=== PATIENT | male | born 1975 | race American Indian/Alaskan Native ===

== ENCOUNTER 2019-01-01 21:04 | Emergency (ER) | payer SELFPAY ==
--- NOTE | 2019-01-01 23:06 | ER ---
Nurse's Notes [facility] Name: Cortes Marsh Age: 43 yrs Sex: Male : 1975 Arrival Date: 01/01/2019 Time: 21:15 Bed 10 Private MD: Diagnosis: Periapical abscess without sinus Presentation: 01/01 21:38 Presenting complaint: Patient states: right ear and right jaw pain X3 days [employer]. pt took ak1 his girlfriend Vamsi this morning and pain decreased. Transition of care: patient was not received from another setting of care. Onset of symptoms is unknown. Risk Assessment: Do you want to hurt yourself or someone else? Patient reports no desire to harm self or others. Initial Sepsis Screen: Does the patient meet any 2 criteria? No. Patient's initial sepsis screen is negative. Does the patient have a suspected source of infection? No. Patient's initial sepsis screen is negative. Care prior to arrival: None. 21:38 Method Of Arrival: Ambulatory ak1 21:38 Acuity: [place] 4 ak1 Triage Assessment: 21:40 General: Appears in no apparent distress. Behavior is calm, cooperative. ak1 Historical: - Allergies: 21:40 No Known Allergies; ak1 - Home Meds: 21:40 None [Active]; ak1 - PMHx: 21:40 None; ak1 - PSHx: 21:40 None; ak1 - Immunization history:: Adult Immunizations unknown. - Social history:: Smoking status: Patient/guardian denies using tobacco. - Ebola Screening: : No symptoms or risks identified at this time. Screenin:22 Abuse screen: Denies threats or abuse. Nutritional screening: No deficits noted. bb Tuberculosis screening: No symptoms or risk factors identified. Fall Risk None identified. Assessment: 23:21 Reassessment: pt not seen by this RN and discharged by EDP. bb 23:23 Reassessment: pt is A\T\O x 4, resp unlabored, verbalized understanding of and agrees to bb plan of care discharge instructions given pt ambulated with steady gait to exit. Vital Signs: 21:40 BP 121 / 66; Pulse 64; Resp 18; Temp 98.2; Pulse Ox 99% on R/A; Weight 79.38 kg (R); ak1 Height 5 ft. 10 in. (177.80 cm) (R); Pain 5/10; 21:40 Body Mass Index 25.11 (79.38 kg, 177.80 cm) ak1 ED Course: 21:15 Patient arrived in ED. ag3 21:40 Triage completed. ak1 21:40 Arm band placed on Patient placed in waiting room, Patient notified of wait time. ak1 22:11 [facility]C [facility] kb 22:11 Mauricio Diehl MD is Attending Physician. kb 23:21 No provider procedures requiring assistance completed. Patient did not have IV access bb during this emergency room visit. Administered Medications: No medications were administered Outcome: 23:06 Discharge ordered by . kb 23:22 Discharged to home ambulatory. bb 23:22 Condition: stable 23:22 Discharge instructions given to patient, Instructed on discharge instructions, follow up and referral plans. medication usage, Demonstrated understanding of instructions, follow-up care, medications, Prescriptions given X 1. 23:24 Patient left the ED. bb Signatures: Noemi Fernandes FNP-C FNP-Ckb Ballard, Brenda, RN RN bb Renetta Torres RN RN ak1 Carie Schmitz ag3
--- NOTE | 2019-01-01 23:06 | EDPHYS ---
Physician Documentation [facility] Name: Cortes Marsh Age: 43 yrs Sex: Male : 1975 Arrival Date: 01/01/2019 Time: 21:15 Bed 10 Private MD: ED Physician Mauricio Diehl HPI: 01/02 00:46 This 43 yrs old Male presents to ER via Ambulatory with complaints of kb Ear Pain, Jaw Pain. 00:47 The patient presents with pain, redness. kb 00:47 The problem is located in the lower right third molar (#32) and lower right second kb molar (#31) and lower right first molar (#30) and lower right second bicuspid (#29). Onset: The symptoms/episode began/occurred 3 day(s) ago. Duration: The symptoms are continuous. Modifying factors: The symptoms are alleviated by nothing, the symptoms are aggravated by nothing. Associated signs and symptoms: Pertinent positives: pain, redness in area, swelling. Severity of symptoms: At their worst the symptoms were moderate, in the emergency department the symptoms are unchanged. The patient has not experienced similar symptoms in the past. The patient has not recently seen a physician. Historical: - Allergies: 01/01 21:40 No Known Allergies; ak1 - Home Meds: 21:40 None [Active]; ak1 - PMHx: 21:40 None; ak1 - PSHx: 21:40 None; ak1 - Immunization history:: Adult Immunizations unknown. - Social history:: Smoking status: Patient/guardian denies using tobacco. - Ebola Screening: : No symptoms or risks identified at this time. ROS: 01/02 00:46 Constitutional: Negative for fever, chills, and weight loss, Neck: Negative for injury, kb pain, and swelling, Cardiovascular: Negative for chest pain, palpitations, and edema, Respiratory: Negative for shortness of breath, cough, wheezing, and pleuritic chest pain, Abdomen/GI: Negative for abdominal pain, nausea, vomiting, diarrhea, and constipation, Back: Negative for injury and pain, MS/Extremity: Negative for injury and deformity, Skin: Negative for injury, rash, and discoloration, Neuro: Negative for headache, weakness, numbness, tingling, and seizure. ENT: Positive for dental pain. Exam: 00:46 Constitutional: This is a well developed, well nourished patient who is awake, alert, kb and in no acute distress. Head/Face: Normocephalic, atraumatic. Chest/axilla: Normal chest wall appearance and motion. Nontender with no deformity. No lesions are appreciated. Cardiovascular: Regular rate and rhythm with a normal S1 and S2. No gallops, murmurs, or rubs. Normal PMI, no JVD. No pulse deficits. Respiratory: Lungs have equal breath sounds bilaterally, clear to auscultation and percussion. No rales, rhonchi or wheezes noted. No increased work of breathing, no retractions or nasal flaring. Abdomen/GI: Soft, non-tender, with normal bowel sounds. No distension or tympany. No guarding or rebound. No evidence of tenderness throughout. Skin: Warm, dry with normal turgor. Normal color with no rashes, no lesions, and no evidence of cellulitis. MS/ Extremity: Pulses equal, no cyanosis. Neurovascular intact. Full, normal range of motion. Neuro: Awake and alert, GCS 15, oriented to person, place, time, and situation. Cranial nerves II-XII grossly intact. Motor strength 5/5 in all extremities. Sensory grossly intact. Cerebellar exam normal. Normal gait. 00:46 ENT: Dental exam: pain, that is moderate, specifically in the lower right second bicuspid (#29), lower right first molar (#30), lower right second molar (#31) and lower right third molar (#32). Vital Signs: 01/01 21:40 BP 121 / 66; Pulse 64; Resp 18; Temp 98.2; Pulse Ox 99% on R/A; Weight 79.38 kg (R); ak1 Height 5 ft. 10 in. (177.80 cm) (R); Pain 5/10; 21:40 Body Mass Index 25.11 (79.38 kg, 177.80 cm) ak1 MDM: 22:49 Patient medically screened. kb 01/02 00:46 Data reviewed: vital signs, nurses notes. Data interpreted: Pulse oximetry: on room air kb is 99 %. Interpretation: normal. Counseling: I had a detailed discussion with the patient and/or guardian regarding: the historical points, exam findings, and any diagnostic results supporting the discharge/admit diagnosis, the need for outpatient follow up, a dentist, to return to the emergency department if symptoms worsen or persist or if there are any questions or concerns that arise at home. Administered Medications: No medications were administered Disposition: 07:10 Co-signature as Attending Physician, Mauricio Diehl MD Available for consultation at ps1 all times. . Disposition: 01/01/19 23:06 Discharged to Home. Impression: Periapical abscess without sinus. - Condition is Stable. - Discharge Instructions: Dental Pain, [id number], Dental Abscess, [id number]. - Prescriptions for Augmentin 875- 125 mg Oral Tablet - take 1 tablet by ORAL route every 12 hours for 7 days; 14 tablet. - Medication Reconciliation Form, Thank You Letter, Antibiotic Education, Prescription Opioid Use form. - Follow up: Emergency Department; When: As needed; Reason: Worsening of condition. Follow up: Private Physician; When: 2 - 3 days; Reason: Recheck today's complaints, Continuance of care, Re-evaluation by your physician. Signatures: Noemi Fernandes FNP-C FNP-Pham Lopez, RN RN bb Renetta Torres RN RN ak1 Mauricio Diehl MD MD ps1 Corrections: (The following items were deleted from the chart) 01/01 23:24 23:06 01/01/2019 23:06 Discharged to Home. Impression: Periapical abscess without bb sinus. Condition is Stable. Forms are Medication Reconciliation Form, Thank You Letter, Antibiotic Education, Prescription Opioid Use. Follow up: Emergency Department; When: As needed; Reason: Worsening of condition. Follow up: Private Physician; When: 2 - 3 days; Reason: Recheck today's complaints, Continuance of care, Re-evaluation by your physician. kb
== END 2019-01-01 23:24 | disposition home or self-care (01) ==
LOC: ER 21:04
DX: K04.7 Periapical abscess without sinus (principal)
CPT/HCPCS: 99282

== ENCOUNTER 2019-12-30 19:04 | Emergency (ER) | payer SELFPAY ==
[2019-12-30] MEDS ORDERED: NA CHLORIDE 0.9% 1,000 ML ONE (20:24)
[2019-12-30 20:30] LABS: Absolute Lymphocytes (CBC) 1.1 K/uL (0.7-4.9); Basophils % 0.3 % (0-1.3); Hematocrit 42.8 % (39.6-49.0); Lymphocytes % 15.4 % (15.3-44.8); MPV 9.4 fL (7.6-11.3)
[2019-12-30 20:48] LABS: Bilirubin Direct 0.1 mg/dL (0-0.2); Bilirubin Total 0.5 mg/dL (0.2-1.0); Potassium 3.8 mmol/L (3.5-5.1); Protein, Total 7.4 g/dL (6.4-8.2)
--- NOTE | 2019-12-30 22:18 | ER ---
Nurse's Notes [facility] Name: Cortes Marsh Age: 44 yrs Sex: Male : 1975 Arrival Date: 12/30/2019 Time: 19:07 Bed 26 Private MD: Diagnosis: Weakness Presentation: 12/29 19:15 Chief complaint: Patient states: Fatigue, sweating, nausea "scatterbrained", and ss generally feeling ill that began today. Denies fever, cough and/or SOB. Coronavirus screen: Client denies travel out of the [place] in the last 14 days. nausea. Ebola Screen: Patient denies exposure to infectious person. Patient denies travel to an Ebola-affected area in the 21 days before illness onset. Initial Sepsis Screen: Does the patient meet any 2 criteria? No. Patient's initial sepsis screen is negative. Does the patient have a suspected source of infection? No. Patient's initial sepsis screen is negative. Risk Assessment: Do you want to hurt yourself or someone else? Patient reports no desire to harm self or others. Note Pt states, "i have anxiety and I had a panic attack two weeks ago. It kind of feels the same, but different like maybe kidney problems.". Onset of symptoms was December 30, 2019. 19:15 Method Of Arrival: Ambulatory ss 19:15 Acuity: [place] 3 ss Historical: - Allergies: 19:18 No Known Allergies; ss - Home Meds: 19:19 None [Active]; ss - PMHx: 19:19 Anxiety; ss - PSHx: 19:19 None; ss - Immunization history:: Adult Immunizations not immunized. - Social history:: Smoking status: Patient denies any tobacco usage or history of. Screenin:17 Abuse screen: Denies threats or abuse. Denies injuries from another. Nutritional rr5 screening: No deficits noted. Tuberculosis screening: No symptoms or risk factors identified. Fall Risk IV access (20 points). Total [place] Fall Scale indicates No Risk (0-24 pts). Assessment: 19:20 General: Appears in no apparent distress. uncomfortable, Behavior is calm, cooperative, rr5 appropriate for age, Reports feeling ill for. Pain: Denies pain. Neuro: Level of Consciousness is awake, alert, obeys commands, Oriented to person, place, time, situation. Cardiovascular: Capillary refill < 3 seconds Patient's skin is warm and dry. Respiratory: Airway is patent Respiratory effort is even, unlabored, Respiratory pattern is regular, symmetrical. 19:20 GI: No signs and/or symptoms were reported involving the gastrointestinal system. : rr5 No signs and/or symptoms were reported regarding the genitourinary system. EENT: No signs and/or symptoms were reported regarding the EENT system. Derm: Skin is intact, is healthy with good turgor, Skin temperature is warm. Musculoskeletal: Circulation, motion, and sensation intact. Capillary refill < 3 seconds. 20:30 Reassessment: Patient appears in no apparent distress at this time. Patient and/or rr5 family updated on plan of care and expected duration. Pain level reassessed. Patient is alert, oriented x 3, equal unlabored respirations, skin warm/dry/pink. 21:17 Reassessment: Patient appears in no apparent distress at this time. Patient is alert, rr5 oriented x 3, equal unlabored respirations, skin warm/dry/pink. no complaints made. 22:35 Reassessment: Patient appears in no apparent distress at this time. Patient is alert, rr5 oriented x 3, equal unlabored respirations, skin warm/dry/pink. discharge instruction given and explained without complaints made. Patient states symptoms have improved. Vital Signs: 19:18 BP 119 / 80; Pulse 90; Resp 18; Temp 98.9(O); Pulse Ox 99% on R/A; Weight 81.65 kg; Height 5 ft. 10 in. (177.80 cm); Pain 0/10; 20:20 BP 115 / 70; Pulse 85; Resp 17; Pulse Ox 98% ; rr5 21:17 BP 109 / 85; Pulse 75; Resp 16; Pulse Ox 99% ; rr5 22:30 BP 123 / 84; Pulse 68; Resp 18; Temp 98.6(O); Pulse Ox 95% on R/A; oe 19:18 Body Mass Index 25.83 (81.65 kg, 177.80 cm) ED Course: 19:07 Patient arrived in ED. bp1 19:18 Triage completed. ss 19:18 Arm band placed on right wrist. ss 19:31 Aric Silva RN is Primary Nurse. rr5 19:35 Rj Iyer MD is Attending Physician. tw4 20:15 Inserted saline lock: 20 gauge in right forearm, using aseptic technique. Blood oe collected. 20:17 Patient has correct armband on for positive identification. Bed in low position. Call rr5 light in reach. Pulse ox on. NIBP on. 21:56 No provider procedures requiring assistance completed. EKG done, by ED staff, reviewed rr5 by Rj Iyer MD. 22:36 IV discontinued, intact, bleeding controlled, No redness/swelling at site. Pressure rr5 dressing applied. Administered Medications: 20:00 Drug: NS 0.9% 1000 ml Route: IV; Rate: 1 bolus; Site: right antecubital; rr5 22:00 Follow up: Response: No adverse reaction; IV Status: Completed infusion; IV Intake: rr5 1000ml Intake: 22:00 IV: 1000ml; Total: 1000ml. rr5 Outcome: 22:16 Discharge ordered by . tw4 22:36 Discharged to home ambulatory. rr5 22:36 Condition: stable 22:36 Discharge instructions given to patient, Instructed on discharge instructions, follow up and referral plans. Demonstrated understanding of instructions, follow-up care. 22:37 Patient left the ED. rr5 Signatures: Monica Echevarria, RN RN ss Herman Lawton Rj Iyer MD MD tw4 Aric Silva, RN RN rr5 Zoe Mcguire bp1
--- NOTE | 2019-12-30 22:18 | EDPHYS ---
Physician Documentation [facility] Name: Cortes Marsh Age: 44 yrs Sex: Male : 1975 Arrival Date: 12/30/2019 Time: 19:07 Bed 26 Private MD: ED Physician Rj Iyer HPI: 12/30 01:28 This 44 yrs old Male presents to ER via Ambulatory with complaints of tw4 Scatterbrain, Sweaty, Doesn't Feel Right, Fatigue. 01:28 The patient presents with dizziness. The patient presents with generalized weakness. tw4 Onset: The symptoms/episode began/occurred yesterday. Context: occurred at home. Modifying factors: The symptoms are alleviated by nothing, the symptoms are aggravated by nothing. Associated signs and symptoms: The patient has no apparent associated signs or symptoms. Severity of symptoms: At their worst the symptoms were moderate in the emergency department the symptoms are unchanged. Patient's baseline: Neuro: alert and fully oriented, Motor: no deficits, Ambulation: walks without assistance. The patient has not experienced similar symptoms in the past. Historical: - Allergies: 12/29 19:18 No Known Allergies; ss - Home Meds: 19:19 None [Active]; ss - PMHx: 19:19 Anxiety; ss - PSHx: 19:19 None; ss - Immunization history:: Adult Immunizations not immunized. - Social history:: Smoking status: Patient denies any tobacco usage or history of. ROS: 12/30 01:28 Constitutional: Negative for fever, chills, and weight loss, Eyes: Negative for injury, tw4 pain, redness, and discharge, Respiratory: Negative for shortness of breath, cough, wheezing, and pleuritic chest pain, Abdomen/GI: Negative for abdominal pain, nausea, vomiting, diarrhea, and constipation, Back: Negative for injury and pain, MS/Extremity: Negative for injury and deformity, Skin: Negative for injury, rash, and discoloration, Neuro: Negative for headache, weakness, numbness, tingling, and seizure. Exam: 01:28 Constitutional: This is a well developed, well nourished patient who is awake, alert, tw4 and in no acute distress. Head/Face: Normocephalic, atraumatic. Cardiovascular: Regular rate and rhythm with a normal S1 and S2. No gallops, murmurs, or rubs. Normal PMI, no JVD. No pulse deficits. Respiratory: Lungs have equal breath sounds bilaterally, clear to auscultation and percussion. No rales, rhonchi or wheezes noted. No increased work of breathing, no retractions or nasal flaring. Abdomen/GI: Soft, non-tender, with normal bowel sounds. No distension or tympany. No guarding or rebound. No evidence of tenderness throughout. Skin: Warm, dry with normal turgor. Normal color with no rashes, no lesions, and no evidence of cellulitis. MS/ Extremity: Pulses equal, no cyanosis. Neurovascular intact. Full, normal range of motion. Neuro: Awake and alert, GCS 15, oriented to person, place, time, and situation. Cranial nerves II-XII grossly intact. Motor strength 5/5 in all extremities. Sensory grossly intact. Cerebellar exam normal. Normal gait. Vital Signs: 12/29 19:18 BP 119 / 80; Pulse 90; Resp 18; Temp 98.9(O); Pulse Ox 99% on R/A; Weight 81.65 kg; ss Height 5 ft. 10 in. (177.80 cm); Pain 0/10; 20:20 BP 115 / 70; Pulse 85; Resp 17; Pulse Ox 98% ; rr5 21:17 BP 109 / 85; Pulse 75; Resp 16; Pulse Ox 99% ; rr5 22:30 BP 123 / 84; Pulse 68; Resp 18; Temp 98.6(O); Pulse Ox 95% on R/A; oe 19:18 Body Mass Index 25.83 (81.65 kg, 177.80 cm) MDM: 19:36 Patient medically screened. tw4 12/30 01:28 Differential diagnosis: cardiac arrhythmia, CVA. Data reviewed: vital signs, nurses tw4 notes. Data reviewed: lab test result(s), CBC, electrolytes, hepatic panel. Test interpretation: by ED physician or midlevel provider: plain radiologic studies. Counseling: I had a detailed discussion with the patient and/or guardian regarding: the historical points, exam findings, and any diagnostic results supporting the discharge/admit diagnosis. Special discussion: I discussed with the patient/guardian in detail that at this point there is no indication for admission to the hospital. It is understood, however, that if the symptoms persist or worsen the patient needs to return immediately for re-evaluation. 12/29 19:35 Order name: Basic Metabolic Panel; Complete Time: 21:29 4 12/29 21:29 Interpretation: Normal except: CL 109; GLUC 125; GFR 75. 12/29 19:35 Order name: CBC with Diff; Complete Time: 21:29 4 12/29 21:29 Interpretation: Normal except: NISHANT% 77.9. 12/29 19:35 Order name: Hepatic Function; Complete Time: 21:29 tw4 12/29 21:31 Interpretation: Within normal limits. 12/29 19:35 Order name: Lipase; Complete Time: 21:29 4 12/29 21:30 Interpretation: Normal except: LIP 55. 12/29 19:35 Order name: IV Saline Lock; Complete Time: 20:17 tw4 12/29 19:35 Order name: Labs collected and sent; Complete Time: 20:17 [facility] 12/29 21:53 Order name: EKG - Nurse/Tech; Complete Time: 21:53 rr5 EC:18 Rate is 56 beats/min. Rhythm is regular. QRS [place] is Normal. NC interval is normal. QRS tw4 interval is normal. QT interval is normal. No Q waves. T waves are Normal. No ST changes noted. Clinical impression: Sinus bradycardia. Reviewed by me. Administered Medications: 12/29 20:00 Drug: NS 0.9% 1000 ml Route: IV; Rate: 1 bolus; Site: right antecubital; rr5 22:00 Follow up: Response: No adverse reaction; IV Status: Completed infusion; IV Intake: rr5 1000ml Disposition: 12/30/19 22:16 Discharged to Home. Impression: Weakness. - Condition is Stable. - Discharge Instructions: Weakness, Fatigue. - Medication Reconciliation Form, Thank You Letter, Antibiotic Education, Prescription Opioid Use form. - Follow up: Private Physician; When: Upon discharge from the Emergency Department; Reason: Recheck today's complaints, Continuance of care, Re-evaluation by your physician. - Problem is new. - Symptoms have improved. Signatures: Dispatcher [employer] EDMA Monica Echevarria RN RN Rj Iyer MD MD tw4 Silva, Aric, RN RN rr5 Corrections: (The following items were deleted from the chart) 22:36 22:16 12/30/2019 22:16 Discharged to Home. Impression: Weakness. Condition is Stable. rr5 Forms are Medication Reconciliation Form, Thank You Letter, Antibiotic Education, Prescription Opioid Use. Follow up: Private Physician; When: Upon discharge from the Emergency Department; Reason: Recheck today's complaints, Continuance of care, Re-evaluation by your physician. Problem is new. Symptoms have improved. tw4
[2019-12-30 22:48] VITALS: BP 123/84; TEMP 98.6; O2SAT 95
--- NOTE | 2020-01-01 11:05 | EKG ---
Test Date: 2019-12-30 Test Time: 21:49:11 Accounts Specialist: RR MEASUREMENT RESULTS: Intervals: Rate: 56 NV: 164 QRSD: 96 QT: 426 QTc: 411 [place]: P: 30 NV: 164 QRS: 74 T: 35 INTERPRETIVE STATEMENTS: Sinus bradycardia Otherwise normal ECG No previous ECG available for comparison Electronically Signed On 01-01-20 11:03:04 CDT by Bridger Marion
== END 2019-12-30 22:37 | disposition home or self-care (01) ==
LOC: ER 19:04
DX: R53.1 Weakness (principal)
CPT/HCPCS: 36415; 80048; 80076; 83690; 85025; 93005; 96360; 96361; 99284; J7030

== ENCOUNTER 2020-10-17 22:43 | Emergency (ER) | payer SELFPAY ==
[2020-10-18 00:25] LABS: Absolute Lymphocytes (CBC) 1.2 K/uL (0.7-4.9); Basophils % 0.6 % (0-1.3); Hematocrit 43.2 % (39.6-49.0); Lymphocytes % 15.5 % (15.3-44.8); MPV 9.1 fL (7.6-11.3); RBC Red Blood Cell Count 4.45 M/uL (4.33-5.43)
[2020-10-18 00:42] LABS: ALT/SGPT 74 U/L (12-78); AST/SGOT 34 U/L (15-37); Albumin 3.9 g/dL (3.4-5.0); Alkaline Phosphatase 72 U/L (45-117); BUN Blood Urea Nitrogen 21 mg/dL (7-18); Bicarbonate 27 mmol/L (21-32); Bilirubin Direct < 0.1 mg/dL (0-0.2); Bilirubin Total 0.2 mg/dL (0.2-1.0); Glucose Level 95 mg/dL (74-106); Lipase 65 U/L (73-393); Protein, Total 7.4 g/dL (6.4-8.2); Sodium Level 142 mmol/L (136-145)
[2020-10-18 01:36] LABS: Urine Blood Negative (Negative); Urine Glucose Negative (Negative); Urine Protein Negative (Negative)
[2020-10-18 01:58] LABS: Barbiturates NEGATIVE (NEGATIVE); Benzodiazepines NEGATIVE (NEGATIVE); Cocaine NEGATIVE (NEGATIVE); METHAMPHETAM NEGATIVE (NEGATIVE); Methadone NEGATIVE (NEGATIVE); Opiates NEGATIVE (NEGATIVE); Phencyclidine NEGATIVE (NEGATIVE); THC Cannibis NEGATIVE (NEGATIVE)
--- NOTE | 2020-10-18 03:15 | ER ---
Nurse's Notes [facility] Name: Cortes Marsh Age: 45 yrs Sex: Male : 1975 Arrival Date: 10/17/2020 Time: 22:46 Bed 7 Private MD: Diagnosis: Pyelonephritis Presentation: 10/17 23:05 Chief complaint: Patient states: he states about a week ago his right wrist "blew up" bb then a few days later he started having back discomfort and his abdomen feels tight tonight he came in because he nauseous and clammy. He denies vomiting or diarrhea. Pt is a runner and runs 5 miles every other day and does yoga states his back does not bother him when he is running. Coronavirus screen: At this time, the client does not indicate any symptoms associated with coronavirus-19. Ebola Screen: No symptoms or risks identified at this time. Initial Sepsis Screen: Does the patient meet any 2 criteria? No. Patient's initial sepsis screen is negative. Does the patient have a suspected source of infection? No. Patient's initial sepsis screen is negative. Risk Assessment: Do you want to hurt yourself or someone else? Patient reports no desire to harm self or others. Onset of symptoms was September 2020. 23:05 Method Of Arrival: Ambulatory bb 23:05 Acuity: [place] 3 bb Historical: - Allergies: 23:08 No Known Allergies; bb - Home Meds: 23:08 None [Active]; bb - PMHx: 23:08 Anxiety; bb - PSHx: 23:08 None; bb - Immunization history:: Adult Immunizations up to date. - Social history:: Smoking status: Patient denies any tobacco usage or history of. Patient/guardian denies using alcohol. Screenin:12 Abuse screen: Denies threats or abuse. Nutritional screening: No deficits noted. jb4 Tuberculosis screening: No symptoms or risk factors identified. Fall Risk None identified. Assessment: 23:12 General: Appears in no apparent distress. uncomfortable, Behavior is calm, cooperative, jb4 appropriate for age. Pain: Denies pain. Neuro: Level of Consciousness is awake, alert, obeys commands. Cardiovascular: Patient's skin is warm and dry. Respiratory: Airway is patent Respiratory effort is even, unlabored, Respiratory pattern is regular, symmetrical. GI: Abdomen is round non-distended, Bowel sounds present X 4 quads. Abd is soft and non tender X 4 quads. : No signs and/or symptoms were reported regarding the genitourinary system. EENT: No signs and/or symptoms were reported regarding the EENT system. Derm: Skin is intact, Skin is pink, warm \\T\\ dry. Musculoskeletal: Circulation, motion, and sensation intact. Range of motion: intact in all extremities. 10/18 00:00 Reassessment: Patient appears in no apparent distress at this time. Patient and/or jb4 family updated on plan of care and expected duration. Pain level reassessed. Patient is alert, oriented x 3, equal unlabored respirations, skin warm/dry/pink. 01:00 Reassessment: Patient appears in no apparent distress at this time. Patient and/or jb4 family updated on plan of care and expected duration. Pain level reassessed. Patient is alert, oriented x 3, equal unlabored respirations, skin warm/dry/pink. 02:00 Reassessment: Patient appears in no apparent distress at this time. Patient and/or jb4 family updated on plan of care and expected duration. Pain level reassessed. Patient is alert, oriented x 3, equal unlabored respirations, skin warm/dry/pink. 03:00 Reassessment: Patient appears in no apparent distress at this time. Patient and/or jb4 family updated on plan of care and expected duration. Pain level reassessed. Patient is alert, oriented x 3, equal unlabored respirations, skin warm/dry/pink. Vital Signs: 10/17 23:05 BP 147 / 87; Pulse 71; Resp 14 S; Temp 98.5(O); Pulse Ox 97% on R/A; Weight 80.74 kg bb (R); Height 5 ft. 10 in. (177.80 cm) (R); Pain 0/10; 10/18 00:00 BP 117 / 82; Pulse 61; Resp 18; Pulse Ox 96% on R/A; jb4 01:45 BP 116 / 79; Pulse 58; Resp 16; Pulse Ox 96% on R/A; jb4 02:30 BP 120 / 82; Pulse 67; Resp 18; Pulse Ox 96% on R/A; jb4 10/17 23:05 Body Mass Index 25.54 (80.74 kg, 177.80 cm) ED Course: 10/17 22:46 Patient arrived in ED. mr 23:01 Roly Waller, RN is Primary Nurse. jb4 23:08 Triage completed. 23:08 Arm band placed on Patient placed in an exam room, on a stretcher, on pulse oximetry. bb 23:12 Patient has correct armband on for positive identification. Bed in low position. Call jb4 light in reach. Side rails up X 1. Pulse ox on. NIBP on. 23:27 Fer Bridges MD is Attending Physician. [facility] 10/18 00:05 Initial lab(s) drawn, by ri, sent to lab. Inserted saline lock: 18 gauge in right jb4 forearm, using aseptic technique. Blood collected. 01:06 CT Abd/Pelvis - IV Contrast Only In Process Unspecified. EDNH 03:22 No provider procedures requiring assistance completed. IV discontinued, intact, jb4 bleeding controlled, No redness/swelling at site. Pressure dressing applied. Administered Medications: 00:09 Not Given (Patient Refused): NS 0.9% 1000 ml IV at 1000 ml once jb4 00:09 Not Given (Patient Refused): morphine 4 mg IVP once; RASS on ADMIN: Combtv4, Very jb4 Agttd3, Agttd2, Rstlss1, AlertClm0, Drwsy-1, Lt Sdtn-2, Mod Sdtn-3, Dp Sdtn-4, UnArsble-5 00:10 Not Given (Patient Refused): Zofran (Ondansetron) 4 mg IVP once; over 2 minutes 4 03:00 Drug: Rocephin (cefTRIAXone) 1 grams Route: IV; Rate: per protocol; Site: right forearm;jb4 03:22 Follow up: Response: No adverse reaction; IV Status: Completed infusion [facility] Outcome: 03:15 Discharge ordered by . [facility] 03:22 Discharged to home ambulatory. 4 03:22 Condition: stable 03:22 Discharge instructions given to patient, Instructed on discharge instructions, follow up and referral plans. medication usage, Demonstrated understanding of instructions, follow-up care, medications, Prescriptions given X 3. 03:22 Patient left the ED. [facility] Signatures: Dispatcher [employer] HUGONH Bee Ribera Brenda, TRACY RN bb Roly Waller RN RN jb4 Fer Bridges MD MD mh7
--- NOTE | 2020-10-18 03:16 | EDPHYS ---
Physician Documentation [facility] Name: Cortes Marsh Age: 45 yrs Sex: Male : 1975 Arrival Date: 10/17/2020 Time: 22:46 Bed 7 Private MD: ED Physician Fer Bridges HPI: 10/18 00:11 This 45 yrs old Male presents to ER via Ambulatory with complaints of mh7 Abdominal Pain, Back Pain. 00:11 The patient complains of pain in the left flank. mh7 00:11 The pain radiates to the abdomen. Onset: The symptoms/episode began/occurred 1 week(s) mh7 ago. Modifying factors: The symptoms are alleviated by nothing. the symptoms are aggravated by movement. 00:12 Associated signs and symptoms: Pertinent positives: nausea, sweaty, Pertinent mh7 negatives: diarrhea, dizziness, dysuria, fever, urinary frequency, headache, hematuria, pain radiating to the lower extremities, vomiting. Severity of pain: At its worst the pain was moderate 4 day(s) ago, in the emergency department the pain has improved moderately. Historical: - Allergies: 10/17 23:08 No Known Allergies; bb - Home Meds: 23:08 None [Active]; bb - PMHx: 23:08 Anxiety; bb - PSHx: 23:08 None; bb - Immunization history:: Adult Immunizations up to date. - Social history:: Smoking status: Patient denies any tobacco usage or history of. Patient/guardian denies using alcohol. ROS: 10/18 00:12 Constitutional: Negative for fever, chills, and weight loss, Eyes: Negative for injury, mh7 pain, redness, and discharge, ENT: Negative for injury, pain, and discharge, Neck: Negative for injury, pain, and swelling, Cardiovascular: Negative for chest pain, palpitations, and edema, Respiratory: Negative for shortness of breath, cough, wheezing, and pleuritic chest pain, : Negative for injury, bleeding, discharge, and swelling, MS/Extremity: Negative for injury and deformity, Skin: Negative for injury, rash, and discoloration, Neuro: Negative for headache, weakness, numbness, tingling, and seizure, Psych: Negative for depression, anxiety, suicide ideation, homicidal ideation, and hallucinations, Allergy/Immunology: Negative for hives, rash, and allergies, Endocrine: Negative for neck swelling, polydipsia, polyuria, polyphagia, and marked weight changes, Hematologic/Lymphatic: Negative for swollen nodes, abnormal bleeding, and unusual bruising. Exam: 00:12 Constitutional: This is a well developed, well nourished patient who is awake, alert, mh7 and in no acute distress. Head/Face: Normocephalic, atraumatic. Eyes: Pupils equal round and reactive to light, extra-ocular motions intact. Lids and lashes normal. Conjunctiva and sclera are non-icteric and not injected. Cornea within normal limits. Periorbital areas with no swelling, redness, or edema. Neck: Trachea midline, no thyromegaly or masses palpated, and no cervical lymphadenopathy. Supple, full range of motion without nuchal rigidity, or vertebral point tenderness. No Meningismus. Chest/axilla: Normal chest wall appearance and motion. Nontender with no deformity. No lesions are appreciated. Cardiovascular: Regular rate and rhythm with a normal S1 and S2. No gallops, murmurs, or rubs. Normal PMI, no JVD. No pulse deficits. Respiratory: Lungs have equal breath sounds bilaterally, clear to auscultation and percussion. No rales, rhonchi or wheezes noted. No increased work of breathing, no retractions or nasal flaring. 00:12 Abdomen/GI: Soft, non-tender, with normal bowel sounds. No distension or tympany. No guarding or rebound. No evidence of tenderness throughout. 00:12 Skin: Warm, dry with normal turgor. Normal color with no rashes, no lesions, and no evidence of cellulitis. MS/ Extremity: Pulses equal, no cyanosis. Neurovascular intact. Full, normal range of motion. Neuro: Awake and alert, GCS 15, oriented to person, place, time, and situation. Cranial nerves II-XII grossly intact. Motor strength 5/5 in all extremities. Sensory grossly intact. Cerebellar exam normal. Normal gait. Psych: Awake, alert, with orientation to person, place and time. Behavior, mood, and affect are within normal limits. 00:12 Abdomen/GI: 00:12 Back: normal spinal alignment noted, CVA tenderness, that is mild, is noted on the left, vertebral tenderness, is not appreciated, muscle spasm, is not present. Vital Signs: 10/17 23:05 BP 147 / 87; Pulse 71; Resp 14 S; Temp 98.5(O); Pulse Ox 97% on R/A; Weight 80.74 kg bb (R); Height 5 ft. 10 in. (177.80 cm) (R); Pain 0/10; 10/18 00:00 BP 117 / 82; Pulse 61; Resp 18; Pulse Ox 96% on R/A; jb4 01:45 BP 116 / 79; Pulse 58; Resp 16; Pulse Ox 96% on R/A; jb4 02:30 BP 120 / 82; Pulse 67; Resp 18; Pulse Ox 96% on R/A; jb4 10/17 23:05 Body Mass Index 25.54 (80.74 kg, 177.80 cm) MDM: 03:13 Differential diagnosis: nephrolithiasis, pyelonephritis, UTI, diverticulitis. Data [facility] reviewed: vital signs, nurses notes, lab test result(s), CBC, electrolytes, urinalysis, radiologic studies, CT scan. Data interpreted: Pulse oximetry: on room air is 96 %. Interpretation: normal. Counseling: I had a detailed discussion with the patient and/or guardian regarding: the historical points, exam findings, and any diagnostic results supporting the discharge/admit diagnosis, lab results, radiology results, the need for outpatient follow up, to return to the emergency department if symptoms worsen or persist or if there are any questions or concerns that arise at home. Response to treatment: the patient's symptoms have markedly improved after treatment. 03:15 Patient medically screened. [facility] 10/17 23:50 Order name: Basic Metabolic Panel; Complete Time: : [facility] 10/17 23:50 Order name: CBC with Diff; Complete Time: : [facility] 10/17 23:50 Order name: Hepatic Function; Complete Time: : [facility] 10/17 23:50 Order name: Lipase; Complete Time: : [facility] 10/17 23:50 Order name: UDS; Complete Time: 02:51 [facility] 10/18 01:35 Order name: Urine Dipstick-Ancillary; Complete Time: 02:51 [facility] 10/17 23:50 Order name: IV Saline Lock; Complete Time: 00:09 [facility] 10/17 23:50 Order name: CT Abd/Pelvis - IV Contrast Only [facility] 10/18 01:38 Order name: Urine Microscopic Only [facility] 10/18 02:54 Order name: Urine Culture [facility] 10/17 23:50 Order name: Labs collected and sent; Complete Time: 00:09 [facility] 10/17 23:50 Order name: Urine Dipstick-Ancillary (obtain specimen); Complete Time: 23:54 [facility] 10/17 23:50 Order name: EKG - Nurse/Tech; Complete Time: 00:05 [facility] Administered Medications: 00:09 Not Given (Patient Refused): NS 0.9% 1000 ml IV at 1000 ml once [facility] 00:09 Not Given (Patient Refused): morphine 4 mg IVP once; RASS on ADMIN: Combtv4, Very jb4 Agttd3, Agttd2, Rstlss1, AlertClm0, Drwsy-1, Lt Sdtn-2, Mod Sdtn-3, Dp Sdtn-4, UnArsble-5 00:10 Not Given (Patient Refused): Zofran (Ondansetron) 4 mg IVP once; over 2 minutes [facility] 03:00 Drug: Rocephin (cefTRIAXone) 1 grams Route: IV; Rate: per protocol; Site: right forearm;[facility] 03:22 Follow up: Response: No adverse reaction; IV Status: Completed infusion [facility] Disposition: 10/18/20 03:15 Discharged to Home. Impression: Pyelonephritis. - Condition is Stable. - Discharge Instructions: Pyelonephritis, Adult, [id number]. - Prescriptions for Zofran ODT 4 mg Oral tablet,disintegrating - place 1 tablet by TRANSLINGUAL route every 8 hours As needed; 6 tablet. ketorolac 10 mg Oral tablet - take 1 tablet by ORAL route every 8 hours As needed not to exceed 40 mg in 24hrs; 12 tablet. Cipro 500 mg Oral Tablet - take 1 tablet by ORAL route every 12 hours for 10 days; 20 tablet. - Medication Reconciliation Form, Thank You Letter, Antibiotic Education, Prescription Opioid Use form. - Follow up: Private Physician; When: 1 - 2 days; Reason: Worsening of condition, Recheck today's complaints, Continuance of care, Re-evaluation by your physician. - Problem is new. - Symptoms have improved. Signatures: Dispatcher [employer] EDPham Raya, RN RN Roly Wang RN RN jb4 Fer Bridges MD MD mh7 Corrections: (The following items were deleted from the chart) 03:22 03:15 10/18/2020 03:15 Discharged to Home. Impression: Pyelonephritis. Condition is jb4 Stable. Forms are Medication Reconciliation Form, Thank You Letter, Antibiotic Education, Prescription Opioid Use. Follow up: Private Physician; When: 1 - 2 days; Reason: Worsening of condition, Recheck today's complaints, Continuance of care, Re-evaluation by your physician. Problem is new. Symptoms have improved. mh7
[2020-10-18] MEDS ORDERED: CEFTRIAXONE/SWI 1gm 1 GM/10 ML SYR ONE (03:19)
[2020-10-18 03:29] VITALS: TEMP 98.5
[2020-10-18 03:30] LABS: Urine Bacteria <20 /HPF (NONE SEEN); Urine Mucus 1+ /HPF (NONE SEEN); Urine RBC <5 /HPF (NONE SEEN); Urine Yeast FEW (NONE SEEN)
[2020-10-18 03:31] VITALS: O2SAT 96
[2020-10-18 03:34] VITALS: BP 120/82
--- NOTE | 2020-10-19 17:01 | RAD REPORT ---
EXAM DESCRIPTION: CT Abdomen and Pelvis With Intravenous Contrast CLINICAL HISTORY: The patient is 45 years old and is Male; Abd pain;Flank pain TECHNIQUE: Axial computed tomography images of the abdomen and pelvis with intravenous contrast. S agittal and coronal reformatted images were created and reviewed. This CT exam was performed using one or more of the following dose reduction techniques: automated exposure control, adjustment of t he mA and/or kV according to patient size, and/or use of iterative reconstruction technique. COMPARISON: No relevant prior studies available. FINDINGS: Lung bases: Unremarkable. No mass. No consolidation. ABDOMEN: Liver: Unremarkable. No mass. Gallbladder and bile ducts: Unremarkable. No calcified stones. No ductal dilation. Pancreas: Unremarkable. No mass. No ductal dilation. Spleen: Unremarkable. No splenomegaly. Adrenals: Unremarkable. No mass. Kidneys and ureters: Unremarkable. No solid mass. No hydronephrosis. Stomach and bowel: Unremarkable. No obstruction. No mucosal thickening. PELVIS: Appendix: No findings to suggest acute appendicitis. Bladder: Unremarkable. No mass. Reproductive: See below. ABDOMEN and PELVIS: Intraperitoneal space: Unremarkable. No free air. No significant fluid collection. Bones/joints: No acute fracture. No dislocation. Soft tissues: Soft tissue density in the right inguinal canal which may represent the right testi zee. Vasculature: Unremarkable. No abdominal aortic aneurysm. Lymph nodes: Unremarkable. No enlarged lymph nodes. IMPRESSION: No acute findings in the abdomen or pelvis. Electronically signed by: Mckinley Duffy MD 10/18/2020 1:30 AM CDT Due to temporary technical issues with the PACS/Fluency reporting system, reports are being signed by the in house radiologists without review as a courtesy to insure prompt reporting. The interpreting radiologist is fully responsible for the content of the report.
== END 2020-10-18 03:22 | disposition home or self-care (01) ==
LOC: ER 22:43
DX: N12 Tubulo-interstitial nephritis, not specified as acute or chronic (principal); F41.9 Anxiety disorder, unspecified
CPT/HCPCS: 36415; 74177; 80048; 80076; 80307; 81003; 81015; 83690; 85025; 87086; 87088; 93005; 96365; 99284; J0696; Q9967

== ENCOUNTER 2022-04-07 13:13 | Emergency (ER) | payer SELFPAY ==
[2022-04-07] MEDS ORDERED: NA CHLORIDE 0.9% 1,000 ML ONE (13:52)
[2022-04-07 14:42] LABS: Absolute Lymphocytes (CBC) 1.3 K/uL (0.7-4.9); Hematocrit 41.4 % (39.6-49.0); Lymphocytes % 15.7 % (15.3-44.8); MCV 97.1 fL (80-100); MPV 8.8 fL (7.6-11.3); RBC Red Blood Cell Count 4.26 M/uL (4.33-5.43)
--- NOTE | 2022-04-07 14:56 | RAD REPORT ---
EXAM DESCRIPTION: RAD - Chest Single View - 04/07/2022 2:41 pm CLINICAL HISTORY: Apprehension COMPARISON: Two view chest 12/11/2010 TECHNIQUE: AP portable chest image was obtained 04/07/2022 2:41 pm . FINDINGS: Lungs are clear. Interstitial pattern matches comparison. Heart and vasculature are normal . No measurable pleural effusion and no pneumothorax. No acute bony abnormality seen. No acute aortic findings suspected. IMPRESSION: No acute cardiopulmonary process. No significant change from comparison study.
[2022-04-07 15:00] LABS: Potassium 3.9 mmol/L (3.5-5.1)
--- NOTE | 2022-04-07 17:10 | ER ---
Nurse's Notes [facility] Name: Cortes Marsh Age: 46 yrs Sex: Male : 1975 Arrival Date: 04/07/2022 Time: 13:16 Bed 14 Private MD: Diagnosis: Shortness of breath;Weakness;Paresthesia of skin Presentation: 04/07 13:38 Chief complaint: Patient states: Noticed dizziness and near syncope events when ll1 changing positions suddenly for the past 2 months. Today, he feels weak, SOB. tingling to arms/legs, near syncope feeling, nausea. No fever. Coronavirus screen: Vaccine status: Patient reports being unvaccinated. Client denies travel out of the [place] in the last 14 days. At this time, the client does not indicate any symptoms associated with coronavirus-19. Ebola Screen: Patient denies travel to an Ebola-affected area in the 21 days before illness onset. Initial Sepsis Screen: Does the patient meet any 2 criteria? No. Patient's initial sepsis screen is negative. Does the patient have a suspected source of infection? No. Patient's initial sepsis screen is negative. Risk Assessment: Do you want to hurt yourself or someone else? Patient reports no desire to harm self or others. Onset of symptoms was April 07, 2022. 13:38 Method Of Arrival: Ambulatory 1 13:38 Acuity: [place] 3 ll1 Triage Assessment: 13:42 General: Appears uncomfortable, Behavior is cooperative, appropriate for age. Neuro: ll1 Reports dizziness, paresthesias a syncopal episode weakness. Respiratory: Reports shortness of breath Onset: The symptoms/episode began/occurred this morning, the patient has mild shortness of breath. GI: Reports nausea. Historical: - Allergies: 13:38 No Known Allergies; ll1 - PMHx: 13:38 Anxiety; ll1 - PSHx: 13:38 None; ll1 - Immunization history:: Client reports having NOT received the Covid vaccine. - Social history:: Smoking status: Patient/guardian denies using tobacco, the patient reports quitting approximately 12 years ago. Screenin:38 Abuse screen: Denies threats or abuse. Denies injuries from another. Nutritional ko1 screening: No deficits noted. Tuberculosis screening: No symptoms or risk factors identified. Fall Risk None identified. Assessment: 14:38 Pain: Denies pain. Cardiovascular: Rhythm is sinus rhythm. Respiratory: Airway is ko1 patent Respiratory effort is even, unlabored. 17:17 Respiratory: Breath sounds are clear bilaterally. ko1 Vital Signs: 13:38 BP 118 / 78; Pulse 69; Resp 7; Temp 98.4; Pulse Ox 97% ; Height 5 ft. 10 in. (177.80 ll1 cm); 14:38 BP 105 / 70; Pulse 62; Resp 16; Pulse Ox 99% on R/A; ko1 16:30 BP 112 / 74; ko1 16:30 BP 110 / 68; Pulse 64; ko1 ED Course: 13:16 Patient arrived in ED. mr 13:22 Roge Hensley MD is Attending Physician. kdr 13:30 Arm band placed on Patient placed in an exam room, on a stretcher. ll1 13:31 Halie Penn, RN is Primary Nurse. ko1 13:42 Triage completed. ll1 14:15 Inserted saline lock: 20 gauge in right antecubital area, using aseptic technique. ko1 Blood collected. Patient maintains SpO2 saturation greater than 95% on room air. 14:20 Basic Metabolic Panel Sent. ko1 14:20 CBC with Diff Sent. ko1 14:20 Troponin HS Sent. ko1 14:27 EKG done, by ED staff, reviewed by Roge Hensley MD. jw7 14:38 Patient has correct armband on for positive identification. Bed in low position. Call ko1 light in reach. Side rails up X 1. Client placed on continuous cardiac and pulse oximetry monitoring. NIBP monitoring applied. geodetic engineer on. 14:43 XRAY Chest (1 view) In Process Unspecified. EDMS 17:10 No provider procedures requiring assistance completed. IV discontinued, intact, ko1 bleeding controlled, No redness/swelling at site. Pressure dressing applied. Administered Medications: 14:19 Drug: NS 0.9% 1000 ml Route: IV; Rate: 1 bolus; Site: right antecubital; ko1 15:17 Follow up: IV Status: Completed infusion; IV converted to saline lock; IV Intake: [id number] Medication: 17:10 VIS not applicable for this client. ko1 Intake: 15:17 IV: 1000ml; Total: 1000ml. ko1 Outcome: 17:09 Discharge ordered by . kdr 17:10 Discharged to home ambulatory, with family. koDominique 17:10 Condition: stable 17:10 Discharge instructions given to patient, family, Instructed on discharge instructions, follow up and referral plans. Demonstrated understanding of instructions, follow-up care. 17:18 Patient left the ED. ko1 Signatures: Dispatcher [employer] EDMS Roge Hensley MD MD kdr RiberaBee mr Kandis Young RN RN ll1 Lizett Kee7 Halie Penn, TRACY RN ko1
--- NOTE | 2022-04-07 17:10 | EDPHYS ---
Physician Documentation [facility] Name: Cortes Marsh Age: 46 yrs Sex: Male : 1975 Arrival Date: 04/07/2022 Time: 13:16 Bed 14 Private MD: ED Physician Roge Hensley HPI: 04/07 14:14 This 46 yrs old Male presents to ER via Ambulatory with complaints of kdr Shortness Of Breath, Numbness, Shaking, Weakness. 14:14 Patient has been dizzy lightheaded and with near syncope today especially when changing kdr positions. This has been intermittent to 1 extended another for the past 2 months. Today he feels weak and short of breath and has tingling with his hands. He also feels like he is been more near syncopal than usual. He denies any upper respiratory infection or fever and cough.. Onset: The symptoms/episode began/occurred today, Became worse today but has been intermittent for several months. Severity of symptoms: At their worst the symptoms were mild in the emergency department the symptoms are unchanged. The patient has not experienced similar symptoms in the past. The patient has not recently seen a physician. Historical: - Allergies: 13:38 No Known Allergies; ll1 - PMHx: 13:38 Anxiety; ll1 - PSHx: 13:38 None; ll1 - Immunization history:: Client reports having NOT received the Covid vaccine. - Social history:: Smoking status: Patient/guardian denies using tobacco, the patient reports quitting approximately 12 years ago. ROS: 14:14 Constitutional: Negative for fever, chills, and weight loss, Eyes: Negative for injury, kdr pain, redness, and discharge, Neck: Negative for injury, pain, and swelling, Cardiovascular: Negative for chest pain, palpitations, and edema, Abdomen/GI: Negative for abdominal pain, nausea, vomiting, diarrhea, and constipation, Back: Negative for injury and pain, : Negative for injury, bleeding, discharge, and swelling, MS/Extremity: Negative for injury and deformity, Skin: Negative for injury, rash, and discoloration, Psych: Negative for depression, anxiety, suicide ideation, homicidal ideation, and hallucinations, Allergy/Immunology: Negative for hives, rash, and allergies, Endocrine: Negative for neck swelling, polydipsia, polyuria, polyphagia, and marked weight changes, Hematologic/Lymphatic: Negative for swollen nodes, abnormal bleeding, and unusual bruising. 14:14 Respiratory: Positive for dyspnea on exertion, shortness of breath, at rest. Negative for cough, hemoptysis, orthopnea, pleurisy, sputum production, wheezing. 14:14 Neuro: Positive for dizziness, numbness, tingling, weakness. Exam: 14:14 Constitutional: This is a well developed, well nourished patient who is awake, alert, kdr and in no acute distress. Head/Face: Normocephalic, atraumatic. Eyes: Pupils equal round and reactive to light, extra-ocular motions intact. Lids and lashes normal. Conjunctiva and sclera are non-icteric and not injected. Cornea within normal limits. Periorbital areas with no swelling, redness, or edema. Neck: Trachea midline, no thyromegaly or masses palpated, and no cervical lymphadenopathy. Supple, full range of motion without nuchal rigidity, or vertebral point tenderness. No Meningismus. Chest/axilla: Normal chest wall appearance and motion. Nontender with no deformity. No lesions are appreciated. Cardiovascular: Regular rate and rhythm with a normal S1 and S2. No gallops, murmurs, or rubs. Normal PMI, no JVD. No pulse deficits. Respiratory: Lungs have equal breath sounds bilaterally, clear to auscultation and percussion. No rales, rhonchi or wheezes noted. No increased work of breathing, no retractions or nasal flaring. Abdomen/GI: Soft, non-tender, with normal bowel sounds. No distension or tympany. No guarding or rebound. No evidence of tenderness throughout. Back: No spinal tenderness. No costovertebral tenderness. Full range of motion. Skin: Warm, dry with normal turgor. Normal color with no rashes, no lesions, and no evidence of cellulitis. MS/ Extremity: Pulses equal, no cyanosis. Neurovascular intact. Full, normal range of motion. Neuro: Awake and alert, GCS 15, oriented to person, place, time, and situation. Cranial nerves II-XII grossly intact. Motor strength 5/5 in all extremities. Sensory grossly intact. Cerebellar exam normal. Normal gait. Psych: Awake, alert, with orientation to person, place and time. Behavior, mood, and affect are within normal limits. Vital Signs: 13:38 BP 118 / 78; Pulse 69; Resp 7; Temp 98.4; Pulse Ox 97% ; Height 5 ft. 10 in. (177.80 ll1 cm); 14:38 BP 105 / 70; Pulse 62; Resp 16; Pulse Ox 99% on R/A; ko1 16:30 BP 112 / 74; ko1 16:30 BP 110 / 68; Pulse 64; ko1 MDM: 14:14 Data reviewed: vital signs, nurses notes, lab test result(s), radiologic studies. kdr Counseling: I had a detailed discussion with the patient and/or guardian regarding: the historical points, exam findings, and any diagnostic results supporting the discharge/admit diagnosis, lab results, the need for outpatient follow up. 17:09 Patient medically screened. [facility] 04/07 13:43 Order name: Basic Metabolic Panel; Complete Time: 16:18 kdr 04/07 13:43 Order name: CBC with Diff; Complete Time: 16:18 kdr 04/07 13:43 Order name: Troponin HS; Complete Time: 16:18 kdr 04/07 13:43 Order name: XRAY Chest (1 view); Complete Time: 16:18 kdr 04/07 13:43 Order name: EKG; Complete Time: 13:52 kdr 04/07 13:43 Order name: Cardiac monitoring; Complete Time: 13:53 kdr 04/07 13:43 Order name: EKG - Nurse/Tech; Complete Time: 14:27 kdr 04/07 13:43 Order name: IV Saline Lock; Complete Time: 14:19 kdr 04/07 13:43 Order name: Labs collected and sent; Complete Time: 14:20 kdr 04/07 13:43 Order name: O2 Per Protocol; Complete Time: 14:20 kdr 04/07 13:43 Order name: O2 Sat Monitoring; Complete Time: 14:20 kdr Administered Medications: 14:19 Drug: NS 0.9% 1000 ml Route: IV; Rate: 1 bolus; Site: right antecubital; ko1 15:17 Follow up: IV Status: Completed infusion; IV converted to saline lock; IV Intake: [id number] Disposition Summary: 04/07/22 17:09 Discharge Ordered Location: Home kdr Problem: new kdr Symptoms: have improved kdr Condition: Stable kdr Diagnosis - Shortness of breath kdr - Weakness kdr - Paresthesia of skin kdr Followup: kdr - With: Private Physician - When: 2 - 3 days - Reason: If symptoms return, Further diagnostic work-up, Recheck today's complaints, Continuance of care, Re-evaluation by your physician Discharge Instructions: - Discharge Summary Sheet kdr - Shortness of Breath, Adult, [id number] kdr - Fatigue kdr - Weakness, [id number] kdr - Paresthesia, [id number] kdr Forms: - Medication Reconciliation Form kdr - Thank You Letter kdr Signatures: Dispatcher [employer] Roge White MD MD kdr Kandis Young RN RN ll1 Halie Penn RN RN ko1
[2022-04-07 17:51] VITALS: TEMP 98.4
[2022-04-07 17:52] VITALS: O2SAT 99
[2022-04-07 17:53] VITALS: BP 110/68
--- NOTE | 2022-04-08 06:31 | EKG ---
Test Date: 2022-04-07 Test Time: 14:23:16 Examination Supervisor: LESLY MEASUREMENT RESULTS: Intervals: Rate: 60 HI: 172 QRSD: 100 QT: 414 QTc: 414 [place]: P: 11 HI: 172 QRS: 77 T: 45 INTERPRETIVE STATEMENTS: Normal sinus rhythm Early repolarization Normal ECG Compared to ECG 10/18/2020 00:01:49 Early repolarization now present Electronically Signed On 04-08-22 06:30:21 MANAGER PMO by Bridger Marion
== END 2022-04-07 17:18 | disposition home or self-care (01) ==
LOC: ER 13:13
DX: R06.02 Shortness of breath (principal); R53.1 Weakness; R20.2 Paresthesia of skin
CPT/HCPCS: 36415; 71045; 80048; 84484; 85025; 93005; 96360; 99285; J7030

== ENCOUNTER 2022-08-10 10:49 | Emergency (ER) | payer SELFPAY ==
--- NOTE | 2022-08-10 11:02 | ER ---
Nurse's Notes [facility] Name: Cortes Marsh Age: 47 yrs Sex: Male : 1975 Arrival Date: 08/10/2022 Time: 10:51 Bed IW1 Private MD: Diagnosis: Local infection of the skin and subcutaneous tissue, unspecified Presentation: 08/10 10:58 Chief complaint: Laceration on right turner from unknown object while mowing the yard 4 hb days ago, concerned about infection. Coronavirus screen: At this time, the client does not indicate any symptoms associated with coronavirus-19. Ebola Screen: No symptoms or risks identified at this time. Initial Sepsis Screen: Does the patient meet any 2 criteria? No. Patient's initial sepsis screen is negative. Does the patient have a suspected source of infection? No. Patient's initial sepsis screen is negative. Onset of symptoms was August 06, 2022. 10:58 Method Of Arrival: Ambulatory hb 10:58 Acuity: [place] 4 hb Historical: - Allergies: 10:59 No Known Allergies; hb - PMHx: 10:59 Anxiety; hb - Immunization history:: Adult Immunizations up to date. - Social history:: Smoking status: Patient denies any tobacco usage or history of. Vital Signs: 10:58 BP 137 / 83; Pulse 57; Resp 16; Temp 97.9(TE); Pulse Ox 99% on R/A; Weight 79.38 kg; hb Height 5 ft. 10 in. ; Pain 3/10; 10:58 Body Mass Index 25.11 (79.38 kg, 177.8 cm) hb 10:58 Pain Scale: Adult hb ED Course: 10:51 Patient arrived in ED. am2 10:55 Noemi Fernandes FNP-C is [facility]. kb 10:[address] MD is Attending Physician. kb 10:59 Triage completed. hb 10:59 Arm band placed on. hb Administered Medications: No medications were administered Outcome: 11:02 Discharge ordered by . kb Signatures: Noemi Fernandes FNP-C FNP-Ckb Baxter, Heather, RN RN Pamela Hartman am2
--- NOTE | 2022-08-10 11:02 | EDPHYS ---
Physician Documentation [facility] Name: Cortes Marsh Age: 47 yrs Sex: Male : 1975 Arrival Date: 08/10/2022 Time: 10:51 Bed IW1 Private MD: ED Physician Lalo St Historical: - Allergies: 08/10 10:59 No Known Allergies; hb - PMHx: 10:59 Anxiety; hb - Immunization history:: Adult Immunizations up to date. - Social history:: Smoking status: Patient denies any tobacco usage or history of. Vital Signs: 10:58 BP 137 / 83; Pulse 57; Resp 16; Temp 97.9(TE); Pulse Ox 99% on R/A; Weight 79.38 kg; hb Height 5 ft. 10 in. ; Pain 3/10; 10:58 Body Mass Index 25.11 (79.38 kg, 177.8 cm) hb 10:58 Pain Scale: Adult hb MDM: 10:56 Patient medically screened. kb Administered Medications: No medications were administered Disposition Summary: 08/10/22 11:02 Discharge Ordered Location: Home kb Condition: Stable kb Diagnosis - Local infection of the skin and subcutaneous tissue, unspecified kb Followup: kb - With: Emergency Department - When: As needed - Reason: Worsening of condition Followup: kb - With: Private Physician - When: 2 - 3 days - Reason: Recheck today's complaints, Continuance of care, Re-evaluation by your physician Discharge Instructions: - Discharge Summary Sheet kb - Wound Infection, [id number] kb Forms: - Medication Reconciliation Form kb - Thank You Letter kb - Antibiotic Education kb - Prescription Opioid Use kb Prescriptions: - Cephalexin 500 mg Oral Capsule - take 1 capsule by ORAL route every 8 hours for 10 days; 30 capsule; Refills: 0, kb Product Selection Permitted Signatures: Noemi Fernandes FNP-C FNP-Mercedes Huntley, RN RN
[2022-08-10] MEDS ORDERED: CEPHALEXIN 250 MG CAP ONE (11:07)
[2022-08-10] MEDS ORDERED: TDAP (DIPHTH,PERTUSS(ACELL),TET VAC) 0.5 ML VIAL IMVAC ONE (11:07)
[2022-08-10 11:33] VITALS: BP 137/83; TEMP 97.9; O2SAT 99
== END 2022-08-10 11:14 | disposition home or self-care (01) ==
LOC: ER 10:49
DX: L08.9 Local infection of the skin and subcutaneous tissue, unspecified (principal)
CPT/HCPCS: 96372; 99283

== ENCOUNTER 2022-11-12 11:53 | Emergency (ER) | payer SELFPAY ==
[2022-11-12] MEDS ORDERED: LIDOCAINE 1% W/EPI 1:100,000 50 ML MDV ONE (12:30)
--- NOTE | 2022-11-12 12:43 | EDPHYS ---
Physician Documentation [facility] Name: Cortes Marsh Age: 47 yrs Sex: Male : 1975 Arrival Date: 11/12/2022 Time: 11:53 Bed 25 Private MD: ED Physician Salo Treviño HPI: 11/12 12:17 This 47 yrs old Male presents to ER via Ambulatory with complaints of jr11 LUMPS ON HEAD AND NECK. 12:17 Patient is a 47-year-old with history of previous abscesses has swelling in the back of jr11 his head, and also some with notes that showed up in his neck on the same side. No fever, pain is minimal to the abscess, review of system otherwise negative.. Historical: - Allergies: 12:11 No Known Allergies; ml4 - Home Meds: 12:11 None [Active]; ml4 - PMHx: 12:11 None; ml4 - PSHx: 12:11 None; ml4 - Immunization history:: Adult Immunizations. - Social history:: Smoking status: Patient denies any tobacco usage or history of. Patient/guardian denies using alcohol, street drugs, IV drugs. ROS: 12:15 All other systems are negative. jr11 Exam: 12:15 Constitutional: This is a well developed, well nourished patient who is awake, alert, jr11 and in no acute distress. Head/Face: Normocephalic, atraumatic. Eyes: Extra-ocular motions intact. Lids and lashes normal. Conjunctiva and sclera are non-icteric and not injected. Cornea within normal limits. Periorbital areas with no swelling, redness, or edema. Neck: Trachea midline, no thyromegaly or masses palpated, and no cervical lymphadenopathy. Supple, full range of motion without nuchal rigidity, or vertebral point tenderness. No Meningismus. Chest/axilla: Normal chest wall appearance and motion. Nontender with no deformity. No lesions are appreciated. Cardiovascular: Regular rate and rhythm with a normal S1 and S2. No gallops, murmurs, or rubs. Normal PMI, no JVD. No pulse deficits. Respiratory: Lungs have equal breath sounds bilaterally, clear to auscultation and percussion. No rales, rhonchi or wheezes noted. No increased work of breathing, no retractions or nasal flaring. Abdomen/GI: Soft, non-tender, with normal bowel sounds. No distension or tympany. No guarding or rebound. No evidence of tenderness throughout. Back: No spinal tenderness. No costovertebral tenderness. Full range of motion. Skin: 3x3 cm abscess to posterior scalp, minimal surrounding erythema MS/ Extremity: Pulses equal, no cyanosis. Neurovascular intact. Full, normal range of motion. Neuro: Awake and alert, GCS 15, oriented to person, place, time, and situation. No gross motor or sensory deficits. Vital Signs: 12:09 BP 124 / 84 RA Sitting (auto/); Pulse 68; Resp 18; Temp 98.2(T); Pulse Ox 100% ; ml4 12:11 Weight 81.65 kg; Height 5 ft. 10 in. ; Pain 8/10; ml4 12:11 Body Mass Index 25.83 (81.65 kg, 177.8 cm) ml4 12:11 Pain Scale: Adult ml4 Procedures: 12:41 I \T\ D: Incision and drainage was performed for an abscess of the scalp Prepped with jr11 alcohol, Anesthetized with 5 ml's 1% Lidocaine w/ Epi. Incised with #10 blade. Drained moderate amount Packed with iodoform gauze, Dressing: sterile 4x4 gauze, the patient tolerated the procedure well. MDM: 12:15 Patient medically screened. jr11 12:17 Differential Diagnosis Patient has an abscess also adenopathy, posterior cervical on jr11 the left side, will do I\T\D placed on antibiotics for adenopathy and mild cellulitis.. Data reviewed: vital signs, nurses notes. 11/12 12:15 Order name: Incision \T\ Drainage Setup; Complete Time: 12:36 jr Administered Medications: 12:40 Drug: Lidocaine-Epinephrine Infiltration -1%: (1:100,000) 10 ml {Note: Vial given to Dr daniela Treviño to be administered to patient by him..} Volume: 20 ml; Route: Infiltration; 12:50 Follow up: Response: No adverse reaction daniela Disposition Summary: 11/12/22 12:42 Discharge Ordered Location: Home [facility] Condition: Stable [facility] Diagnosis - Cutaneous abscess of other sites jr11 - Cellulitis of head [any part, except face] jr11 Discharge Instructions: - Discharge Summary Sheet jr11 - Skin Abscess jr11 Forms: - Medication Reconciliation Form jr11 - Thank You Letter jr11 - Antibiotic Education jr11 - Prescription Opioid Use jr11 Prescriptions: - Cephalexin 500 mg Oral Capsule - take 1 capsule by ORAL route every 8 hours for 10 days; 30 capsule; Refills: 0, jr11 Product Selection Permitted Signatures: Salo Treviño MD MD jr11 Shirley Cox RN RN nj1 TRACY VillatoroIII, TRACY Mendez RN ml4 Corrections: (The following items were deleted from the chart) 12:12 12:11 PMHx: Anxiety; ml4 ml4
--- NOTE | 2022-11-12 12:43 | ER ---
Nurse's Notes [facility] Name: Cortes Marhs Age: 47 yrs Sex: Male : 1975 Arrival Date: 11/12/2022 Time: 11:53 Bed 25 Private MD: Diagnosis: Cutaneous abscess of other sites;Cellulitis of head [any part, except face] Presentation: 11/12 12:08 Chief complaint: Patient states: lump. Coronavirus screen: At this time, the client ml4 does not indicate any symptoms associated with coronavirus-19. Ebola Screen: No symptoms or risks identified at this time. Initial Sepsis Screen: Does the patient meet any 2 criteria? No. Patient's initial sepsis screen is negative. Does the patient have a suspected source of infection? No. Patient's initial sepsis screen is negative. Risk Assessment: Do you want to hurt yourself or someone else? Patient reports no desire to harm self or others. Onset of symptoms was October 11, 2022. Care prior to arrival: None. 12:08 Method Of Arrival: Ambulatory ml4 12:08 Acuity: [place] 4 ml4 Triage Assessment: 12:09 General: Appears in no apparent distress. comfortable, Behavior is calm, cooperative, ml4 anxious. Pain: Complains of pain in left base of the skull Pain does not radiate. Pain currently is 3 out of 10 on a pain scale. Is intermittent. EENT: No signs and/or symptoms were reported regarding the EENT system. Neuro: No deficits noted. Cardiovascular: No deficits noted. Respiratory: No deficits noted. GI: No deficits noted. No signs and/or symptoms were reported involving the gastrointestinal system. : No deficits noted. No signs and/or symptoms were reported regarding the genitourinary system. Derm:. Derm: Abscess located on left base of the skull has no drainage. Musculoskeletal: No deficits noted. No signs and/or symptoms reported regarding the musculoskeletal system. Historical: - Allergies: 12:11 No Known Allergies; ml4 - Home Meds: 12:11 None [Active]; ml4 - PMHx: 12:11 None; ml4 - PSHx: 12:11 None; ml4 - Immunization history:: Adult Immunizations. - Social history:: Smoking status: Patient denies any tobacco usage or history of. Patient/guardian denies using alcohol, street drugs, IV drugs. Screenin:36 [facility] ED Fall Risk Assessment (Adult) History of falling in the last 3 months, nj1 including since admission No falls in past 3 months (0 pts) Confusion or Disorientation No (0 pts) Intoxicated or Sedated No (0 pts) Impaired Gait No (0 pts) Mobility Assist Device Used No (0 pt) Altered Elimination No (0 pt) Score/Fall Risk Level 0 - 2 = Low Risk Oriented to surroundings, Maintained a safe environment, Hourly rounding (assess needs \T\ fall precautionary measures) done. Abuse screen: Denies threats or abuse. Denies injuries from another. Nutritional screening: No deficits noted. Tuberculosis screening: No symptoms or risk factors identified. Assessment: 12:37 Reassessment: Patient appears in no apparent distress at this time. Patient and/or nj1 family updated on plan of care and expected duration. Pain level reassessed. Patient is alert, oriented x 3, equal unlabored respirations, skin warm/dry/pink. Vital Signs: 12:09 BP 124 / 84 RA Sitting (auto/); Pulse 68; Resp 18; Temp 98.2(T); Pulse Ox 100% ; ml4 12:11 Weight 81.65 kg; Height 5 ft. 10 in. ; Pain 8/10; ml4 12:11 Body Mass Index 25.83 (81.65 kg, 177.8 cm) ml4 12:11 Pain Scale: Adult ml4 ED Course: 11:55 Patient arrived in ED. im 12:04 Salo Treviño MD is Attending Physician. jr11 12:09 Triage completed. ml4 12:09 Arm band placed on right wrist. ml4 12:14 Shirley Cox, TRACY is Primary Nurse. nj1 12:36 Patient has correct armband on for positive identification. Bed in low position. Call [facility] light in reach. 12:50 No provider procedures requiring assistance completed. nj1 12:50 Patient did not have IV access during this emergency room visit. [facility] Administered Medications: 12:40 Drug: Lidocaine-Epinephrine Infiltration -1%: (1:100,000) 10 ml {Note: Vial given to Dr daniela Treviño to be administered to patient by him..} Volume: 20 ml; Route: Infiltration; 12:50 Follow up: Response: No adverse reaction [facility] Medication: 12:50 VIS not applicable for this client. nj1 Outcome: 12:42 Discharge ordered by . jr11 12:50 Discharged to home ambulatory. nj1 12:50 Condition: stable 12:50 Discharge instructions given to patient, Instructed on discharge instructions, follow up and referral plans. medication usage, wound care, Demonstrated understanding of instructions, follow-up care, medications, wound care. 12:57 Patient left the ED. nj1 Signatures: Salo Treviño MD MD jr11 Shirley Cox RN RN nj1 Patty Thompson, RNIII, Andrea, RN RN ml4 Corrections: (The following items were deleted from the chart) 12:12 12:11 PMHx: Anxiety; ml4 ml4
[2022-11-12 13:16] VITALS: BP 124/84; TEMP 98.2; O2SAT 100
== END 2022-11-12 12:57 | disposition home or self-care (01) ==
LOC: ER 11:53
PROC: 0H90XZZ Drainage of Scalp Skin, External Approach (ICD-10-PCS; principal; 2022-11-12)
DX: L02.811 Cutaneous abscess of head [any part, except face] (principal); L03.811 Cellulitis of head [any part, except face]
CPT/HCPCS: 99283

== ENCOUNTER 2023-12-07 08:41 | Emergency (ER) | payer SELFPAY ==
[2023-12-07] MEDS ORDERED: SMZ./TMP. 800/160 MG TABLET ONE (10:46)
[2023-12-07] MEDS ORDERED: MUPIROCIN 2% OINT 22GM TUBE TOP ONE (10:46)
[2023-12-07] MEDS ORDERED: DOXYCYCLINE 100 MG CAP PO ONE (10:46)
--- NOTE | 2023-12-07 10:59 | ER ---
Nurse's Notes [facility] Name: Cortes Marsh Age: 48 yrs Sex: Male : 1975 Arrival Date: 12/07/2023 Time: 08:41 Bed 12 Private MD: Diagnosis: Laceration without foreign body, left lower leg Presentation: 12/06 09:05 Chief complaint: Patient states: Cut L leg Tuesday on [employer]. Site is red, swollen ll1 now. No fever. Coronavirus screen: Client denies travel out of the [place] in the last 14 days. At this time, the client does not indicate any symptoms associated with coronavirus-19. Ebola Screen: Patient denies travel to an Ebola-affected area in the 21 days before illness onset. Complicating Factors: There are no complicating factors for this patient. Initial Sepsis Screen: Does the patient meet any 2 criteria? No. Patient's initial sepsis screen is negative. Does the patient have a suspected source of infection? No. Patient's initial sepsis screen is negative. Risk Assessment: Do you want to hurt yourself or someone else? Patient reports no desire to harm self or others. Onset of symptoms was December 02, 2023. 09:05 Method Of Arrival: Ambulatory ll1 09:05 Acuity: [place] 4 ll1 Triage Assessment: 09:05 General: Appears uncomfortable, Behavior is calm, cooperative, appropriate for age. ll1 Pain: Complains of pain in left leg Quality of pain is described as aching. Derm: deep abrasion L leg. Musculoskeletal: Circulation, motion, and sensation intact. Capillary refill < 3 seconds, Reports pain in left leg. Historical: - Allergies: 09:04 No Known Allergies; ll1 - PMHx: 09:04 None; ll1 - PSHx: 09:04 None; ll1 - Immunization history:: Adult Immunizations up to date. - Infectious Disease History:: Denies. - Social history:: Smoking status: Patient denies any tobacco usage or history of. Screenin:33 [facility] ED Fall Risk Assessment (Adult) History of falling in the last 3 months, ph including since admission No falls in past 3 months (0 pts) Confusion or Disorientation No (0 pts) Intoxicated or Sedated No (0 pts) Impaired Gait No (0 pts) Mobility Assist Device Used No (0 pt) Altered Elimination No (0 pt) Score/Fall Risk Level 0 - 2 = Low Risk Oriented to surroundings, Maintained a safe environment, Hourly rounding (assess needs \T\ fall precautionary measures) done. Abuse screen: Denies threats or abuse. Denies injuries from another. Nutritional screening: No deficits noted. Tuberculosis screening: No symptoms or risk factors identified. Assessment: 10:15 General: Appears in no apparent distress. Behavior is calm, cooperative. Pain: ph Complains of pain in left turner. Neuro: Level of Consciousness is awake, alert, obeys commands, Oriented to person, place, time, situation. Derm: Skin is pink, warm \T\ dry. Vital Signs: 09:05 BP 120 / 89; Pulse 85; Resp 17; Temp 97; Pulse Ox 97% ; Weight 81.65 kg; Height 5 ft. ll1 10 in. ; Pain 0/10; 09:05 Body Mass Index 25.83 (81.65 kg, 177.8 cm) ll1 09:05 Pain Scale: Adult ll1 ED Course: 08:47 Patient arrived in ED. mg5 08:51 Vinicio Del Real MD is Attending Physician. hoda 09:04 Arm band placed on. ll1 09:06 Triage completed. ll1 09:33 Irina Chavez, RN is Primary Nurse. ph 09:33 Patient has correct armband on for positive identification. Bed in low position. Call ph light in reach. Side rails up X 1. Pulse ox on. NIBP on. 10:58 Alvaro Howe MD is Referral Physician. hoda 11:20 No provider procedures requiring assistance completed. Patient did not have IV access ph during this emergency room visit. Administered Medications: 11:15 Drug: Mupirocin Topical Ointment 2 % 1 application Topical once Route: Topical; Site: ph affected area; 11:20 Follow up: Response: No adverse reaction ph 11:15 Drug: Doxycycline PO 200 mg PO once Route: PO; ph 11:20 Follow up: Response: No adverse reaction ph 11:15 Drug: Trimethoprim-Sulfamethoxazole PO (160 mg-800 mg (DS) 1 tablet PO once Route: PO; ph 11:20 Follow up: Response: No adverse reaction ph Medication: 09:33 VIS not applicable for this client. ph Outcome: 10:59 Discharge ordered by . hoda 11:20 Patient left the ED. ph 11:20 Discharged to home ambulatory, ph 11:20 Condition: good 11:20 Discharge instructions given to patient, Instructed on discharge instructions, follow up and referral plans. medication usage, Demonstrated understanding of instructions, follow-up care, medications, Prescriptions given X 3, Signatures: Vinicio Del Real MD MD cha Hall, Patricia, RN RN Kandis Young RN RN [facility] [place] [id number]
--- NOTE | 2023-12-07 11:00 | EDPHYS ---
Physician Documentation [facility] Name: Cortes Marsh Age: 48 yrs Sex: Male : 1975 Arrival Date: 12/07/2023 Time: 08:41 Bed 12 Private MD: ED Physician Vinicio Del Real HPI: 12/06 10:53 This 48 yrs old Male presents to ER via Ambulatory with complaints of hoda Laceration To Leg. 10:53 The patient has a laceration related to: doing crafts, occurred outdoors. The hoda laceration(s) is(are) located on the left leg. Associated signs and symptoms: Pertinent positives:. Historical: - Allergies: 09:04 No Known Allergies; ll1 - PMHx: 09:04 None; ll1 - PSHx: 09:04 None; ll1 - Immunization history:: Adult Immunizations up to date. - Infectious Disease History:: Denies. - Social history:: Smoking status: Patient denies any tobacco usage or history of. ROS: 10:55 Constitutional: Negative for fever, chills, and weight loss, Eyes: Negative for injury, hoda pain, redness, and discharge, ENT: Negative for injury, pain, and discharge, Neck: Negative for injury, pain, and swelling, Cardiovascular: Negative for chest pain, palpitations, and edema, Respiratory: Negative for shortness of breath, cough, wheezing, and pleuritic chest pain, Abdomen/GI: Negative for abdominal pain, nausea, vomiting, diarrhea, and constipation, Back: Negative for injury and pain, : Negative for injury, bleeding, discharge, and swelling, Neuro: Negative for headache, weakness, numbness, tingling, and seizure, Psych: Negative for depression, anxiety, suicide ideation, homicidal ideation, and hallucinations, Allergy/Immunology: Negative for hives, rash, and allergies, Endocrine: Negative for neck swelling, polydipsia, polyuria, polyphagia, and marked weight changes, Hematologic/Lymphatic: Negative for swollen nodes, abnormal bleeding, and unusual bruising, 10:55 MS/extremity: Positive for contusion, erythema, laceration, pain, of the left turner, Exam: 10:55 Constitutional: This is a well developed, well nourished patient who is awake, alert, hoda and in no acute distress. Head/Face: Normocephalic, atraumatic. Eyes: Pupils equal round and reactive to light, extra-ocular motions intact. Lids and lashes normal. Conjunctiva and sclera are non-icteric and not injected. Cornea within normal limits. Periorbital areas with no swelling, redness, or edema. ENT: Nares patent. No nasal discharge, no septal abnormalities noted. Tympanic membranes are normal and external auditory canals are clear. Oropharynx with no redness, swelling, or masses, exudates, or evidence of obstruction, uvula midline. Mucous membranes moist. Neck: Trachea midline, no thyromegaly or masses palpated, and no cervical lymphadenopathy. Supple, full range of motion without nuchal rigidity, or vertebral point tenderness. No Meningismus. Chest/axilla: Normal chest wall appearance and motion. Nontender with no deformity. No lesions are appreciated. Cardiovascular: Regular rate and rhythm with a normal S1 and S2. No gallops, murmurs, or rubs. Normal PMI, no JVD. No pulse deficits. Respiratory: Lungs have equal breath sounds bilaterally, clear to auscultation and percussion. No rales, rhonchi or wheezes noted. No increased work of breathing, no retractions or nasal flaring. Abdomen/GI: Soft, non-tender, with normal bowel sounds. No distension or tympany. No guarding or rebound. No evidence of tenderness throughout. Back: No spinal tenderness. No costovertebral tenderness. Full range of motion. Male : Normal genitalia with no discharge or lesions. MS/ Extremity: Pulses equal, no cyanosis. Neurovascular intact. Full, normal range of motion. Neuro: Awake and alert, GCS 15, oriented to person, place, time, and situation. Cranial nerves II-XII grossly intact. Motor strength 5/5 in all extremities. Sensory grossly intact. Cerebellar exam normal. Normal gait. Psych: Awake, alert, with orientation to person, place and time. Behavior, mood, and affect are within normal limits. 10:55 Skin: abscess, that is small, cellulitis, that is mild, induration, that is mild is noted, injury, laceration(s), the wound is approximately 2.5 cm(s), with a depth of .25 cm(s), of the left turner, Vital Signs: 09:05 BP 120 / 89; Pulse 85; Resp 17; Temp 97; Pulse Ox 97% ; Weight 81.65 kg; Height 5 ft. ll1 10 in. ; Pain 0/10; 09:05 Body Mass Index 25.83 (81.65 kg, 177.8 cm) ll1 09:05 Pain Scale: Adult ll1 MDM: 08:51 Patient medically screened. hoda 10:57 Differential diagnosis: superficial laceration. Data reviewed: vital signs, nurses hoda notes. Consideration of Admission/Observation Escalation of care including admission/observation considered. I considered the following discharge prescriptions or medication management in the emergency department Medications were administered in the Emergency Department. See MAR. Test considered but Not performed: Labs: no labs, no x rays. Care significantly affected by the following chronic conditions: none. Counseling: I had a detailed discussion with the patient and/or guardian regarding the historical points, exam findings, and any diagnostic results supporting the discharge/admit diagnosis, the need for outpatient follow up, for definitive care, Administered Medications: 11:15 Drug: Mupirocin Topical Ointment 2 % 1 application Topical once Route: Topical; Site: ph affected area; 11:20 Follow up: Response: No adverse reaction ph 11:15 Drug: Doxycycline PO 200 mg PO once Route: PO; ph 11:20 Follow up: Response: No adverse reaction ph 11:15 Drug: Trimethoprim-Sulfamethoxazole PO (160 mg-800 mg (DS) 1 tablet PO once Route: PO; ph 11:20 Follow up: Response: No adverse reaction ph Disposition Summary: 12/07/23 10:59 Discharge Ordered Notes: [facility] Problem: new hoda Symptoms: have improved hoda Condition: Stable hoda Diagnosis - Laceration without foreign body, left lower leg hoda Followup: hoda - With: Private Physician - When: 2 - 3 days - Reason: Recheck today's complaints, Continuance of care, Re-evaluation by your physician Followup: hoda - With: Alvaro Howe MD - When: 2 - 3 days - Reason: Recheck today's complaints, Continuance of care, Re-evaluation by your physician Discharge Instructions: - Discharge Summary Sheet hoda - Cellulitis, Adult hoda - Laceration Care, Adult hoda - Cellulitis, Adult, [id number] hoda - Laceration Care, Adult, [id number] hoda Forms: - Medication Reconciliation Form hoda - Antibiotic Education hoda - Prescription Opioid Use hoda - Patient Portal [facility] - [facility] Thank You Letter [facility] Prescriptions: - Centany 2 % Topical ointment - apply 1 application TOPICAL route 3 times per day; 30 gram; Refills: 0, Product [facility] Selection Permitted - Ibuprofen 600 mg Oral Tablet - take 1 tablet ORAL route every 6 hours As needed take with food; 30 tablet; [facility] Refills: 0, Product Selection Permitted - Doxycycline Hyclate 100 mg Oral Tablet - take 1 tablet ORAL route every 12 hours; 20 tablet; Refills: 0, Product [facility] Selection Permitted - Bactrim DS 800-160 mg Oral Tablet - take 1 tablet ORAL route every 12 hours for 10 days; 20 tablet; Refills: 0, [facility] Product Selection Permitted Signatures: Viniico Del Real MD MD cha Hall, Patricia RN RN Kandis Young RN RN ll1
[2023-12-07 11:39] VITALS: BP 120/89; TEMP 97; O2SAT 97
== END 2023-12-07 11:20 | disposition home or self-care (01) ==
LOC: ER 08:41
DX: S81.812A Laceration without foreign body, left lower leg, initial encounter (principal)
CPT/HCPCS: 99283